=== PATIENT | female | born 1950 | race Caucasian/White ===

== ENCOUNTER 2016-10-07 13:16 | Outpatient (CLI) | payer OTHER ==
--- NOTE | 2016-10-10 11:50 | OP Clinic Progress Note ---
REFERRING PHYSICIAN: Dr. Yoko Sanchez Dear Dr. Sanchez: REASON FOR VISIT: I had the pleasure of seeing Jaja Andres. As you know, we have been treating her for gout versus pseudogout and I believe she has hyperuricemia. She has been on allopurinol 300 mg daily and Mitigare and doing quite well. Her only complaint is some pain in her right buttock radiating down into her right calf. She has had that for a long time. She has had no fevers, chills, sweats, chest pain, shortness of breath, cough, wheezing, nausea, vomiting, or diarrhea. Her weight has been stable. MEDICATIONS: 1. Lisinopril 20 mg daily. 2. Hydrochlorothiazide 25 mg daily. 3. Amlodipine. 4. Atorvastatin. 5. Metformin. 6. Mitigare 0.6 mg daily. 7. Allopurinol 300 mg once daily. PAST MEDICAL HISTORY: 1. TIA. 2. Hypertension. 3. Diabetes. 4. Cataracts. PAST SURGICAL HISTORY: 1. Cholecystectomy. 2. Carotid endarterectomy. REVIEW OF SYSTEMS: No fevers, chills, sweats, chest pain, shortness of breath, cough, or wheezing. PHYSICAL EXAMINATION: GENERAL: On exam, she looks well. VITAL SIGNS: Her blood pressure today was 178/96, heart rate 80, R: 18, T: 97.2. HEENT: External ears are unremarkable. LUNGS: Clear. HEART: Regular rhythm. ABDOMEN: Soft. PERIPHERAL JOINTS: No synovitis. No tophus. Her gait is normal. IMPRESSION: 1. Gout and hyperuricemia, improved. 2. Pseudogout, stable. PLAN: I have asked her to stop her Mitigare and just continue allopurinol 300 mg daily ; otherwise, I will see her on a p.r.n. basis, as she appears to be doing quite well. We discussed an exercise program for the patient's low back pain, as well as precautionary measures and we also discussed the need for some weight loss. cc: Dr. Yoko NOLASCO
== END 2016-10-07 13:17 ==
LOC: RHEU 13:16
PROVIDERS: ATTEND Internal Medicine
DX: M10.9 Gout, unspecified (principal)
CPT/HCPCS: 99213